=== PATIENT | female | born 1935 | race Caucasian/White ===

== ENCOUNTER 2017-11-18 14:08 | Observation (INO) | payer MEDICARE ==
[~2017-11-18] VITALS: Ht 144.8 cm; Wt 67.6 kg
[2017-11-18] MEDS ORDERED: ASPIRIN 81 MG CHEW TAB PO ONE ×2 (14:15→16:30)
--- NOTE | 2017-11-18 14:41 | Diagnostic Imaging Report ---
PROCEDURE: A single AP view of the chest. COMPARISON: None. INDICATIONS: SHORTNESS OF BREATH FINDINGS: Lines/tubes: None. Lungs: The lungs are well inflated. Mild interstitial opacities may be related to scarring. No evidence of infection. Pleura: There is no pleural effusion or pneumothorax. Heart and mediastinum: The heart size is within normal limits. Aorta is tortuous. Bones: No acute bony abnormality. IMPRESSION: Mild interstitial opacities may be related to scarring. No evidence of infection. Dictated by: Mikey Thibodeaux M.D. on 11/18/2017 at 14:40 Electronically approved by: Mikey Thibodeaux M.D. on 11/18/2017 at 14:40
[2017-11-18 14:58] LABS: BASOPHILS % 0.8 % (0.0-1.0); EOSINOPHILS # (AUTO) 0.1 (0.0-0.4); EOSINOPHILS % 1.7 % (0.0-6.0); HEMATOCRIT 39.9 % (34.2-44.1); HEMOGLOBIN 12.8 g/dL (12.0-16.0); LYMPHOCYTES # (AUTO) 1.8 (1.0-3.2); LYMPHOCYTES % 34.3 % (18.0-39.1); MEAN CORPUSCULAR HEMOGLOBIN 30.5 pg (28-32); MEAN CORPUSCULAR HGB CONC 32.1 g/dL (31-35); MEAN CORPUSCULAR VOLUME 95.2 fL (81-99); MONOCYTES # (AUTO) 0.3 (0.2-0.8); PLATELET COUNT 200 x10e3/uL (140-360); RED BLOOD COUNT 4.19 x10e6/uL (3.6-5.1); RED CELL DISTRIBUTION WIDTH 13.8 % (11.7-14.4)
[2017-11-18 15:00] LABS: INR 0.96
[2017-11-18 15:01] LABS: PARTIAL THROMBOPLASTIN TIME 30.9 seconds (23.8-35.5)
[2017-11-18 15:12] LABS: ALANINE AMINOTRANSFERASE 11 IU/L (0-55); ALBUMIN/GLOBULIN RATIO 1.2 (0.8-2.0); ALKALINE PHOSPHATASE 97 IU/L (40-150); ANION GAP 11.9 mmol/L (8-16); BLOOD UREA NITROGEN 14 mg/dL (7-26); BUN/CREATININE RATIO 16 (6-25); CALCIUM 9.1 mg/dL (8.4-10.2); CARBON DIOXIDE 28 mmol/L (22-29); CHLORIDE 107 mmol/L (98-107); CREATINE KINASE 68 IU/L (29-168); CREATININE, SERUM 0.88 mg/dL (0.57-1.11); EST GLOMERULAR FILTRATION RATE > 60 ML/MIN (60-); GLUCOSE 133 mg/dL (74-118); POTASSIUM 3.9 mmol/L (3.5-5.1); SODIUM 143 mmol/L (136-145)
[2017-11-18 15:44] LABS: BILIRUBIN,URINE NEGATIVE (NEGATIVE); CLARITY,URINE CLEAR (CLEAR); COLOR,URINE YELLOW (YELLOW); KETONES,URINE NEGATIVE (NEGATIVE); LEUKOCYTE ESTERASE ,URINE 2+ (NEGATIVE); NITRITE,URINE NEGATIVE (NEGATIVE); PROTEIN,URINE DIPSTICK NEGATIVE (NEGATIVE); URINE UROBILINOGEN 0.2 mg/dL (0.2 - 1)
[2017-11-18 15:53] LABS: BACTERIA,URINE FEW /HPF; EPITHELIAL CELLS,URINE FEW /LPF; MUCUS,URINE MODERATE (RARE); RBC,URINE 0-5 /HPF (0-5)
[2017-11-18] MEDS ORDERED: SODIUM CHLORIDE FLUSH 10 ML SYR INJ PRN (16:30)
[2017-11-18] MEDS ORDERED: NITROGLYCERIN 0.4 MG SUBL SL PRN (16:30)
[2017-11-18] MEDS ORDERED: CEFTRIAXONE SOD 1 GM VIAL IV ONE (16:30)
[2017-11-18] MEDS ORDERED: NITROGLYCERIN/D5W 200 MCG/ML 250 ML IV PRN (16:30)
[2017-11-18] MEDS ORDERED: MORPHINE SULFATE 2 MG/ML SYR IV PRN (16:30)
[2017-11-18] MEDS ORDERED: HYDRALAZINE HCL 20 MG/ML VIAL IV PRN (16:30)
[2017-11-18] MEDS ORDERED: ONDANSETRON HCL INJ 2 MG/ML VIAL IV PRN (16:30)
[2017-11-18] MEDS ORDERED: HYDRALAZINE HCL 20 MG/ML VIAL IV ONE ×2 (16:30→18:45)
--- OUTSIDE RECORDS SUMMARY | 2017-11-18 17:25 | XMS REPORT ---
Author Author [facility] Address Unknown Phone Unavailable Care Team Providers Care Construction Producer Name Role Phone EMILY SOLOMON Unavailable Unavailable Problems This patient has no known problems. Allergies, Adverse Reactions, Alerts This patient has no known allergies or adverse reactions. Medications This patient has no known medications. Results Test Description Test Time Test Comments Text Results Atomic Results Result Comments CHEST SINGLE (PORTABLE) [address] [address] Patient Name: OSITO LORENZANA MR #: [id number] : 1935 Age/Sex: 82/F Req #: [id number] Adm Physician: Ordered by: BRIAN CHACON PATCH SETTER Report #: [id number] Location: ER Room/Bed: Procedure: [id number] DX/CHEST SINGLE (PORTABLE) Exam Date: 11/18/17 Exam Time: 1415 REPORT STATUS: Signed PROCEDURE: A single AP view of the chest. COMPARISON: None. INDICATIONS: SHORTNESS OF BREATH FINDINGS: Lines/tubes: None. Lungs: The lungs are well inflated. Mild interstitial opacities may be related to scarring. No evidence of infection. Pleura: There is no pleural effusion or pneumothorax. Heart and mediastinum: The heart size is within normal limits. Aorta is tortuous. Bones: No acute bony abnormality. IMPRESSION: Mild interstitial opacities may be related to scarring. No evidence of infection. Dictated by: Martha Thibodeaux M.D. on 11/18/2017 at 14:40 Electronically approved by: Martha Thibodeaux M.D. on 11/18/2017 at 14:40 Dictated By: MARTHA THIBODEAUX MD 1440 Transcribed By: CHAU on 1440 COPY TO: BRIAN CHACON NP
[2017-11-18] MEDS: FAMOTIDINE 20 MG/2 ML VIAL IV SCH (17:41)
[2017-11-18] MEDS ORDERED: PROPRANOLOL HCL40 MG PO (20:08)
[2017-11-18] MEDS ORDERED: CITALOPRAM HBR20 MG PO (20:08)
[2017-11-18] MEDS ORDERED: LEXAPRO10 MG PO (20:08)
[2017-11-18] MEDS ORDERED: LOSARTAN POTASS25 MG PO (20:08)
[2017-11-18] MEDS ORDERED: BACTRIM DS TAB1 EACH PO (20:08)
[2017-11-18] MEDS ORDERED: BUSPIRONE HCL5 MG PO (20:08)
[2017-11-18 22:00] VITALS: BP 179/86
[2017-11-18 22:18] VITALS: BP 179/86
[2017-11-19 00:08] VITALS: BP 131/75
[2017-11-19 04:07] VITALS: BP 168/74
[2017-11-19] MEDS: FAMOTIDINE 20 MG/2 ML VIAL IV SCH (05:03)
[2017-11-19 08:22] VITALS: BP 175/80
[2017-11-19] MEDS ORDERED: BUSPIRONE HCL 5 MG TAB PO SCH (09:00)
[2017-11-19] MEDS ORDERED: CITALOPRAM HYDROBROMIDE 20 MG TAB PO SCH (09:00)
--- NOTE | 2017-11-19 09:04 | Consultation ---
DATE OF CONSULTATION: November 18, 2017 CARDIOLOGY CONSULTATION REQUESTING PHYSICIAN: Dr. Elbert Payton REASON FOR CONSULTATION: Chest pain and uncontrolled high blood pressure. HPI: This is an 82-year-old female that presented with chest pain, shortness of breath and weakness. According to the medical record and bedside nurse, she started having chest pain at the center of her chest on a scale of 4 out of 10 with no radiation that started yesterday. She was brought to the emergency room for evaluation. She is alert and oriented times 2. She is a little agitated and not following commands. Troponin times 2 negative. EKG showed normal sinus rhythm with 1st-degree AV block and some prolonged QT. PAST MEDICAL HISTORY: Hypertension, headache, anxiety, and depression. PAST SURGICAL HISTORY: Appendectomy, hysterectomy. FAMILY HISTORY: Noncontributory. SOCIAL HISTORY: No smoking. No drinking. She lives at home with her son. MEDICATIONS: See chart. She is on a bunch of psych meds. ALLERGIES: SHE IS ALLERGIC TO PENICILLIN. REVIEW OF SYSTEMS: Unable to obtain. Positive for chest pain and hypertension. PHYSICAL EXAMINATION VITALS: Temperature 97, heart rate 86, blood pressure 175/80, respirations 18, oxygen saturation 95%. GENERAL: She is awake, alert and oriented times 1 and very agitated. HEENT: Mucous membranes moist. NECK: Supple. LUNGS: Bilaterally clear to auscultation. CARDIOVASCULAR: S1, S2 present. ABDOMEN: Soft. NEUROLOGIC: She is able to move all extremities. EXTREMITIES: Bilateral lower extremities with no edema. LABS: Sodium 143, potassium 3.9, chloride 107, CO2 28, BUN 14, creatinine 0.88. Glucose 133. White blood cells 5.19, hemoglobin 12.8, hematocrit 39.9, platelet 200. PT 12.0, PTT 30.9. INR is 0.96. IMPRESSION 1. Chest pain. 2. Uncontrolled high blood pressure. 3. History of headaches. 4. History of anxiety and depression. ASSESSMENT AND PLAN: She is pending an echo to assess the LV and the valve function. Will get serial cardiac enzymes. Resume her home blood pressure medication. Losartan, propranolol, and nifedipine have been added. Will check her lipid panel and continue nitrates. Further cardiac workup pending clinical course. Thank you for this consultation. Dictated by Scout Martinez NP Job#: [id number]
[2017-11-19 09:20] LABS: BASOPHILS % 0.3 % (0.0-1.0); EOSINOPHILS % 0.1 % (0.0-6.0); HEMATOCRIT 41.3 % (34.2-44.1); HEMOGLOBIN 13.3 g/dL (12.0-16.0); LYMPHOCYTES # (AUTO) 1.6 (1.0-3.2); LYMPHOCYTES % 18.3 % (18.0-39.1); MEAN CORPUSCULAR HEMOGLOBIN 30.5 pg (28-32); MEAN CORPUSCULAR HGB CONC 32.2 g/dL (31-35); MEAN CORPUSCULAR VOLUME 94.7 fL (81-99); MONOCYTES # (AUTO) 0.4 (0.2-0.8); NEUTROPHILS # (AUTO) 6.6 (2.1-6.9); PLATELET COUNT 229 x10e3/uL (140-360); RED BLOOD COUNT 4.36 x10e6/uL (3.6-5.1); RED CELL DISTRIBUTION WIDTH 14.1 % (11.7-14.4)
[2017-11-19] MEDS: ASPIRIN 81 MG ENTERIC COATED PO SCH (09:22)
[2017-11-19] MEDS: FAMOTIDINE 20 MG TAB PO SCH ×2 (09:22→16:30)
[2017-11-19] MEDS: PROPRANOLOL HCL 40 MG TAB PO SCH ×2 (09:23→17:00)
[2017-11-19] MEDS: LOSARTAN POTASSIUM 25 MG TAB PO SCH (09:23)
[2017-11-19] MEDS: NIFEDIPINE CR 30 MG TAB PO SCH ×2 (09:26→20:27)
[2017-11-19] MEDS: ESCITALOPRAM OXALATE 10 MG TAB PO SCH (09:26)
[2017-11-19 09:34] LABS: ANION GAP 13.9 mmol/L (8-16); CHOL/HDL RATIO 3.5 (3.0-3.6); CREATININE, SERUM 1.02 mg/dL (0.57-1.11); POTASSIUM 3.9 mmol/L (3.5-5.1)
[2017-11-19 09:53] LABS: CREATINE KINASE MB 2.5 ng/mL (0-5.0); THYROID STIMULATING HORMONE 0.864 uIU/mL (0.350-4.940)
--- NOTE | 2017-11-19 11:17 | History and Physical ---
PRIMARY CARE PHYSICIAN: Dr. Win Sawyer CHIEF COMPLAINT: Chest pain. HISTORY OF PRESENT ILLNESS: This is an 82-year-old woman with a history of anxiety disorder and hypertension, now developing left-sided chest pain described as sharp with mild shortness of breath and dizziness. She has not had a stress test in the past. All of this history has been obtained from the patient's son by telephone. The patient is unable to provide much history. PAST MEDICAL HISTORY: Hypertension, depression, anxiety, possible early dementia, obsessive-compulsive disorder, hearing deficits. PAST SURGICAL HISTORY: Appendectomy, hysterectomy, varicose vein surgical management. ALLERGIES: PER ELECTRONIC MEDICAL RECORD. FAMILY HISTORY/SOCIAL HISTORY: Patient is . She lives with her son. No alcohol, illicits or cigarettes. MEDICATIONS: Per electronic medical record. REVIEW OF SYSTEMS: Unreliable. PHYSICAL EXAMINATION VITAL SIGNS: Have been reviewed. In the emergency room, blood pressure as high as 233/107. GENERAL: A tired-appearing woman resting in bed. HEENT: Anicteric. CARDIOVASCULAR: Normal S1 and S2. LUNGS: Moderate breath sounds. ABDOMEN: Soft, nontender and nondistended. EXTREMITIES: No edema or calf tenderness. NEUROLOGICAL: Alert. She is oriented times 2. She moves all extremities. SKIN: Dry. PSYCHIATRIC: Flat affect. LABS: Reviewed. MEDICATIONS: Reviewed. ASSESSMENT AND PLAN: This is an 82-year-old woman with: 1. Hypertensive emergency: Will treat with medication regimen and reduce blood pressure. 2. Left-sided chest pain: Could be related to the elevated blood pressure. Will consult cardiology. 3. Urinary tract infection: Treat with antibiotics. Follow up cultures. 4. Obesity: Body mass index 32.3. Will obtain lipid panel and screen for diabetes. 5. Anxiety/depression: Continue Lexapro, citalopram and buspirone. 6. Prophylaxis: Will use Lovenox and Pepcid. 7. Disposition: Follow up cardiology recommendations. Follow up urine cultures. Job#: [id number] [place]
[2017-11-19] MEDS ORDERED: HALOPERIDOL LACTATE 5 MG/ML VIAL IM PRN (15:30)
[2017-11-19] MEDS ORDERED: RISPERIDONE 0.5 MG TAB PO PRN (15:30)
[2017-11-19] MEDS ORDERED: LORAZEPAM 0.5 MG TAB PO PRN (15:30)
[2017-11-19] MEDS ORDERED: LORAZEPAM INJ 2 MG/ML VIAL IM PRN (15:30)
[2017-11-19 16:13] VITALS: BP 142/68
[2017-11-19] MEDS: ENOXAPARIN SOD INJ 40 MG/0.4 ML SYR SC SCH (17:00)
[2017-11-19] MEDS: BUSPIRONE HCL 5 MG TAB PO SCH (17:00)
--- NOTE | 2017-11-19 17:06 | Consultation ---
DATE OF CONSULTATION: November 19, 2017 PSYCHIATRIC CONSULTATION REASON FOR CONSULTATION: To evaluate patient's agitation. HISTORY OF PRESENTING ILLNESS: The patient is an 82-year-old female admitted to the hospital for chest pain. Psychiatric consultation is called to evaluate patient's agitation. As per the medical record, patient complained of chest pain and she has history of anxiety/depression and hypertension, obsessive-compulsive disorder and hearing deficit. She has never had any stress test in the past, and medical history was obtained by Medical through patient's son as patient was too confused to provide much information. Upon evaluation today, patient is found to be sitting in the wheelchair in the nursing station, reading magazine. She appears to be calm and pleasant. She is alert, awake and oriented to self only. She is very confused. She does not know where she is or the current year. She is unable to answer any questions appropriately. As per nursing staff, patient has been very agitated and restless. She is trying to get out of bed. She has been yelling, screaming. She was admitted last night but did not receive any p.r.n. medication last night. Apparently her son has accepted to take her home upon discharge. She does have some medication for depression/anxiety. PAST PSYCHIATRIC HISTORY: As per the medical record, patient has history of dementia, depression/anxiety, and obsessive-compulsive disorder. She is unable to answer any other questions. As per the notes, she does not drink alcohol or use any drugs. FAMILY HISTORY: Unknown. SOCIAL HISTORY: Will be going home with son as per nursing staff. MENTAL STATUS EXAMINATION: The patient is an elderly female. She is alert, awake and oriented to self only. Mood is anxious. Affect is congruent with mood. Thought process is loose. She does not elicit paranoia or delusional thinking. She denies any suicidal or homicidal ideation. She denies any hallucination. Insight and judgment are limited. Memory is grossly impaired. CURRENT MEDICATION 1. Nifedipine. 2. Lexapro 10 mg p.o. daily. 3. Propranolol. 4. Losartan. 5. Famotidine. 6. Celexa 10 mg p.o. daily. 7. BuSpar 10 mg p.o. daily. 8. Aspirin. 9. Morphine. 10. Hydralazine. 11. Enoxaparin. 12. Sodium chloride. 13. Zofran. 14. Nitroglycerin. CURRENT LAB: WBC 8.68, RBC 4.36, hemoglobin 13.3, hematocrit 41.3, platelets 229. Sodium 140, potassium 3.9, chloride 106, CO2 24, BUN 18, creatinine 1.82. ASSESSMENT: Major depressive disorder, recurrent, mild to moderate; anxiety disorder; history of obsessive-compulsive disorder; unspecified dementia with behavior disturbances. PLAN 1. Discontinue Celexa. 2. Continue Lexapro 10 mg p.o. daily. 3. Adjust BuSpar to 5 mg p.o. b.i.d. 4. Add Haldol 1 mg IM q.6 h. p.r.n. 5. Add Risperdal 0.5 mg p.o. q.6 h. p.r.n. 6. Add Ativan 0.5 mg p.o. q.6 h. p.r.n. 7. Add Ativan 0.5 mg IM q.6 h. p.r.n. 8. Monitor for agitation. Thank you for this consultation. Dictated by: PRANAV Jensen Job#: [id number] [place]
[2017-11-19 20:15] VITALS: BP 166/89
[2017-11-20] MEDS ORDERED: FAMOTIDINE20 MG PO (05:41)
[2017-11-20] MEDS ORDERED: ASPIRIN EC81 MG PO (05:41)
[2017-11-20] MEDS ORDERED: RISPERDAL0.5 MG PO (05:41)
[2017-11-20] MEDS ORDERED: LEVAQUIN500 MG PO (05:41)
[2017-11-20] MEDS ORDERED: NIFEDIPINE ER30 M1 PO (05:41)
[2017-11-20 06:00] VITALS: BP 135/64
[2017-11-20] MEDS: FAMOTIDINE 20 MG TAB PO SCH ×3 (07:30→17:51)
--- NOTE | 2017-11-20 08:45 | Progress Note ---
DATE: NO DICTATION, LENGTH 1 SECOND. Job#: [id number] [place]
--- NOTE | 2017-11-20 08:49 | Discharge Summary ---
PRINCIPAL DIAGNOSES 1. Hypertensive emergency. 2. Left-sided chest pain, which is noncardiac. 3. Urinary tract infection. 4. Obesity. Body mass index 32.3 with hemoglobin A1c 5.2, LDL 142. 5. Anxiety and depression. SECONDARY DIAGNOSIS: Anxiety. CHIEF COMPLAINT: Chest pain. HISTORY OF PRESENT ILLNESS: An 82-year-old woman developing chest pain. Refer to the H and P for further details. HOSPITAL COURSE: The patient had chest pain. Cardiac enzymes were negative. She had hypertensive emergency and treated with medication regimen. She had anxiety, depression and some psychosis. She does have dementia. Psychiatry was consulted who assisted in management. Medications have been adjusted. The patient is currently appropriate for discharge with medication regimen. DISCHARGE MEDICATIONS: Per electronic medical record. FOLLOWUP 1. Primary care doctor in 1 week. 2. Psychiatry in 3 days. CONDITION ON DISCHARGE: Stable and improving. DISCHARGE LOCATION: Home with physical therapy and home health services. TERESO PAUL MD Job#: [id number] [place]
[2017-11-20] MEDS: ESCITALOPRAM OXALATE 10 MG TAB PO SCH (09:00)
[2017-11-20] MEDS: PROPRANOLOL HCL 40 MG TAB PO SCH ×3 (09:00→17:52)
[2017-11-20] MEDS: BUSPIRONE HCL 5 MG TAB PO SCH ×3 (09:00→17:51)
[2017-11-20] MEDS: LOSARTAN POTASSIUM 25 MG TAB PO SCH (09:00)
[2017-11-20] MEDS: ASPIRIN 81 MG ENTERIC COATED PO SCH (09:00)
[2017-11-20] MEDS: NIFEDIPINE CR 30 MG TAB PO SCH (09:00)
[2017-11-20 09:22] VITALS: BP 100/51
[2017-11-20] MEDS ORDERED: RISPERIDONE 0.5 MG TAB PO PRN (16:45)
[2017-11-20] MEDS ORDERED: HALOPERIDOL LACTATE 5 MG/ML VIAL IM PRN (16:45)
[2017-11-20] MEDS: ENOXAPARIN SOD INJ 40 MG/0.4 ML SYR SC SCH (17:44)
--- NOTE | 2017-11-20 17:56 | Progress Note ---
DATE: November 20, 2017 PSYCHIATRIC PROGRESS NOTE Patient evaluated and events noted. Patient received a Haldol dose last night. She has been very drowsy and has not been eating breakfast today or lunch. However, upon entering the room, patient is easily arousable. She opens her eyes but is not answering questions. She is calm at this time, has a sitter in the room. She has a discharge order to go home and to follow up with Psychiatry. Patient will be picked up by her son. Discussed with patient's nurse and informed them that she will most likely need a psychiatrist to follow up and also for any p.r.n. medication to adjust the medication lower to prevent sedation. ASSESSMENT: Major depressive disorder, mild to moderate; diet is ordered; history of obsessive-compulsive disorder; unspecified dementia. PLAN 1. To reduce Haldol p.r.n. IM to 0.5 mg IM q.6 h. p.r.n. 2. Reduce Risperdal to 0.25 mg p.o. q.6 h. p.r.n. 3. Continue with Lexapro 10 mg p.o. daily. 4. Continue with BuSpar 5 mg p.o. b.i.d. 5. Continue Ativan 0.5 mg p.o. q.6 h. p.r.n. 6. Continue with Ativan 0.5 mg IM q.6 h. p.r.n. 7. No other for sedation or agitation. Dictated by: PRANAV Jensen Job#: [id number] [place]
== END 2017-11-20 18:51 | disposition home or self-care (01) ==
LOC: ER 14:08 → ERHOLD 17:22 → IMCU 21:24
PROVIDERS: ADMIT Internal Medicine; ATTEND Internal Medicine
DX: R07.89 Other chest pain (principal); N39.0 Urinary tract infection, site not specified; I16.1 Hypertensive emergency; I10 Essential (primary) hypertension; F42.9 Obsessive-compulsive disorder, unspecified; E66.9 Obesity, unspecified; Z68.32 Body mass index [BMI] 32.0-32.9, adult; F41.8 Other specified anxiety disorders; F33.1 Major depressive disorder, recurrent, moderate; F03.91 Unspecified dementia, unspecified severity, with behavioral disturbance; Z88.0 Allergy status to penicillin
CPT/HCPCS: 36415 ×2; 71045; 80048; 80053; 80061; 81001; 82550 ×2; 82553 ×2; 83036; 83735; 83880; 84443; 84484 ×2; 85025 ×2; 85610; 85730; 87086; 93005; 93306; 93925; 99284; G0378 ×3; J0360; J0696; J1630; J1650 ×2; J2270; J2405

== ENCOUNTER 2018-04-22 13:45 | Emergency (ER) | payer MEDICARE ==
[~2018-04-22] VITALS: Ht 144.8 cm; Wt 67.6 kg
[~2018-04-22 13:45] MED LIST: ASPIRIN EC81 MG PO; BACTRIM DS TAB1 EACH PO; BUSPIRONE HCL5 MG PO; CITALOPRAM HBR20 MG PO; FAMOTIDINE20 MG PO; LEVAQUIN500 MG PO; LEXAPRO10 MG PO; LOSARTAN POTASS25 MG PO; NIFEDIPINE ER30 M1 PO; PROPRANOLOL HCL40 MG PO; RISPERDAL0.5 MG PO
--- NOTE | 2018-04-22 16:57 | Diagnostic Imaging Report ---
PROCEDURE:HIP LEFT 2-3 VW (+/- PELVIS) COMPARISON:None. INDICATIONS:FELL FINDINGS: BONES:Generalized osteopenia, which limits evaluation of the bony structures. No acute displaced fracture or dislocation. No lytic or blastic lesion. SOFT TISSUES:Multiple metallic clips project over the medial aspect of both proximal thighs. OTHER:Pelvic phleboliths. Degenerative changes in the lower lumbosacral spine, bilateral sacroiliac joints and to a lesser degree bilateral hip joints. CONCLUSION: Generalized osteopenia, which limits evaluation of structures. No acute, displaced fracture or dislocation, within the limitations of the study. Noe Nguyen M.D. Dictated by: Noe Nguyen M.D. on 04/22/2018 at 17:02 Electronically approved by: Noe Nguyen M.D. on 04/22/2018 at 17:02
--- NOTE | 2018-04-22 16:58 | Diagnostic Imaging Report ---
PROCEDURE:FEMUR 2 VIEWS MINIMUM LEFT COMPARISON:None. INDICATIONS:FALL FINDINGS: Decreased mineralization, which limits evaluation of bony structures. No acute, displaced fracture or dislocation. No lytic or blastic lesions. Vascular calcifications. Multiple metallic clips project in the posterior aspect of the left leg soft tissues.. CONCLUSION: Decreased mineralization, which limits evaluation of the bony structures. No acute displaced fracture or dislocation, within the limitations of the study. Noe Nguyen M.D. Dictated by: Noe Nguyen M.D. on 04/22/2018 at 17:04 Electronically approved by: Noe Nguyen M.D. on 04/22/2018 at 17:04
[2018-04-22 18:17] VITALS: BP 125/61
== END 2018-04-22 18:23 | disposition home or self-care (01) ==
LOC: ER 13:45
DX: S70.02XA Contusion of left hip, initial encounter (principal); S70.12XA Contusion of left thigh, initial encounter; W18.39XA Other fall on same level, initial encounter; Y93.01 Activity, walking, marching and hiking; Y92.008 Other place in unspecified non-institutional (private) residence as the place of occurrence of the external cause
CPT/HCPCS: 99284

== ENCOUNTER 2018-04-24 21:58 | Inpatient (IN) | payer MEDICARE ==
[~2018-04-24] VITALS: Ht 170.2 cm; Wt 70.8 kg
--- NOTE | 2018-04-24 23:02 | Diagnostic Imaging Report ---
History: Status post fall. Comparison studies: None Technique: Axial images were obtained through the cervical region.. Coronal and sagittal images reconstructed from the axial data.. Intravenous contrast: None Findings: Fractures: None. Soft tissue injuries: None. Atlantoaxial articulation: Intact. Alignment: Normal lordosis. Dextrocurvature of the cervical spine is likely positional. 2 mm grade 1 retrolisthesis at C5-C6 is likely degenerative. Cervicomedullary junction: No abnormalities. The foramen magnum is patent. Soft tissues: No abnormalities. Vertebrae: Diffuse osseous demineralization. No fractures, infection or neoplasm. Degenerative changes: C2-C3: Moderate degenerative disc disease. Posterior disc osteophyte complex without canal stenosis. Mild right foraminal stenosis due to facet and uncovertebral arthrosis. C3-C4: Severe degenerative disc disease with complete loss of intervertebral disc space. Mild right foraminal stenosis due to facet and uncovertebral arthrosis. C4-C5: Mild degenerative disc disease. Posterior disc osteophyte complex results in mild canal stenosis. Moderate left foraminal stenosis due to facet and uncovertebral arthrosis. C5-C6: Moderate degenerative disc disease with decreased intervertebral disc space and vacuum phenomenon. Grade 1 retrolisthesis. Mild right and moderate left foraminal stenosis due to facet and uncovertebral arthrosis. C6-C7: Mild degenerative disc disease. Mild left foraminal stenosis due to facet and uncovertebral arthrosis.. IMPRESSION: 1. No acute cervical spine fracture. Dextrocurvature of the cervical spine is likely positional. 2. Ligament, spinal cord and or vascular abnormalities cannot be excluded on the basis of this examination. 3. Cervical spondylosis as detailed above. Signed by: Dr. Marlen Benito M.D. on 04/24/2018 10:59 PM
--- NOTE | 2018-04-24 23:08 | Diagnostic Imaging Report ---
EXAMINATION: Head CT without contrast. HISTORY:Fall. COMPARISON:None. TECHNIQUE: Multidetector axial images were obtained from the foramen magnum to the vertex without contrast. The images were reconstructed using brain and bone algorithms. Thin section brain images were reformatted into coronal and sagittal planes. Intravenous contrast: None IMAGE QUALITY: Acceptable. FINDINGS: Skull/scalp: No lytic or blastic. lesions. No surgical changes. Parenchyma: Nonspecific bilateral frontoparietal patchy white matter hypodensity are likely related to small vessel ischemic changes. Old lacunar infarct in left caudate head, anterior aspect of right thalamus, right paramedian aspect of cingulate gyrus and anterior limb of left internal capsule that extends to involve left putamen. Arteries: No density suggestive of thrombosis. Atherosclerotic calcification in bilateral carotid siphon. Dural sinuses: No abnormal density suggestive of thrombosis. Ventricles: Mild compensated dilatation due to volume loss. No hydrocephalus. Extra-axial spaces: No abnormal density. Brain volume: Normal for age. Craniocervical junction: No mass, Chiari malformation, or basilar invagination. Sella: No mass. Paranasal/mastoid sinuses: Imaged portions unremarkable. IMPRESSION: 1. No acute intracranial abnormality. 2. Moderate supratentorial white matter microvascular ischemic changes and multifocal chronic lacunar infarcts. 3. Generalized age-related cerebral volume loss. Signed by: Dr. Marlen Benito M.D. on 04/24/2018 11:05 PM
--- NOTE | 2018-04-24 23:25 | Diagnostic Imaging Report ---
EXAM: PELVIS AP 1-2 VIEWS INDICATION: Fall COMPARISON: Pelvic x-ray April 22, 2018 FINDINGS: BONES: No acute fractures. JOINTS: No malalignment. Degenerative changes of the lower lumbar spine, sacroiliac joints and pubic symphysis and bilateral hips. SOFT TISSUES: Surgical clips bilateral medial thighs. IMPRESSION: No evidence of a pelvic fracture. Neither femoral neck is seen in profile. If there is clinical concern for a hip fracture, consider dedicated hip views. Signed by: Dr. Haven Velazquez M.D. on 04/24/2018 11:21 PM
--- NOTE | 2018-04-24 23:30 | Diagnostic Imaging Report ---
EXAM: CHEST SINGLE (PORTABLE), AP 1 view INDICATION: Fall COMPARISON: November 18, 2017 FINDINGS: LINES/TUBES: None LUNGS: No consolidations or edema. Subsegmental linear atelectasis right lung base. PLEURA: No effusions or pneumothorax. HEART AND MEDIASTINUM: Stable appearance. BONES AND SOFT TISSUES: Indeterminate density projected over the left lower lobe. IMPRESSION: Indeterminate density projected over the left lower lobe. This could represent a hernia or overlying artifact. Please correlate for external artifact and obtaining upright PA and lateral view of the chest as clinically indicated. Signed by: Dr. Haven Velazquez M.D. on 04/24/2018 11:27 PM
[2018-04-25 00:14] LABS: BASOPHILS # (AUTO) 0.1 (0.0-0.1); BASOPHILS % 0.9 % (0.0-1.0); EOSINOPHILS # (AUTO) 0.2 (0.0-0.4); EOSINOPHILS % 3.2 % (0.0-6.0); HEMATOCRIT 40.6 % (34.2-44.1); HEMOGLOBIN 13.2 g/dL (12.0-16.0); LYMPHOCYTES # (AUTO) 2.3 (1.0-3.2); LYMPHOCYTES % 33.8 % (18.0-39.1); MEAN CORPUSCULAR HEMOGLOBIN 30.4 pg (28-32); MEAN CORPUSCULAR HGB CONC 32.5 g/dL (31-35); MEAN CORPUSCULAR VOLUME 93.5 fL (81-99); MONOCYTES # (AUTO) 0.4 (0.2-0.8); MONOCYTES % 6.6 % (4.4-11.3); NEUTROPHILS # (AUTO) 3.7 (2.1-6.9); NEUTROPHILS % 55.2 % (38.7-80.0); PLATELET COUNT 242 x10e3/uL (140-360); RED BLOOD COUNT 4.34 x10e6/uL (3.6-5.1); RED CELL DISTRIBUTION WIDTH 14.2 % (11.7-14.4)
[2018-04-25 00:32] LABS: ALBUMIN 4.3 g/dL (3.5-5.0); ALBUMIN/GLOBULIN RATIO 1.2 (0.8-2.0); ANION GAP 17.9 mmol/L (8-16); CALCIUM 9.6 mg/dL (8.4-10.2); CREATININE, SERUM 1.22 mg/dL (0.57-1.11); POTASSIUM 3.9 mmol/L (3.5-5.1)
[2018-04-25 04:38] LABS: CLARITY,URINE SL CLOUDY (CLEAR); COLOR,URINE YELLOW (YELLOW)
[2018-04-25 04:39] LABS: BILIRUBIN,URINE NEGATIVE (NEGATIVE); KETONES,URINE NEGATIVE (NEGATIVE); LEUKOCYTE ESTERASE ,URINE 1+ (NEGATIVE); NITRITE,URINE NEGATIVE (NEGATIVE); PROTEIN,URINE DIPSTICK NEGATIVE (NEGATIVE); URINE UROBILINOGEN 0.2 mg/dL (0.2 - 1)
[2018-04-25 04:40] LABS: BACTERIA,URINE MANY /HPF; EPITHELIAL CELLS,URINE MANY /LPF
[2018-04-25] MEDS ORDERED: ONDANSETRON HCL INJ 2 MG/ML VIAL IV PRN (05:00)
[2018-04-25] MEDS: CEFTRIAXONE SOD 1 GM VIAL IV SCH (05:30)
[2018-04-25] MEDS ORDERED: ACETAMINOPHEN 325 MG TAB PO PRN (12:00)
[2018-04-25] MEDS ORDERED: CIPRO500 MG PO (12:21)
[2018-04-25] MEDS ORDERED: DIAZEPAM5 MG PO (12:21)
[2018-04-25] MEDS ORDERED: POTASSIUM CHLO20 ME1 (12:21)
[2018-04-25] MEDS ORDERED: APPLE CIDER VI600 MG (12:21)
[2018-04-25] MEDS ORDERED: FUROSEMIDE40 MG PO (12:21)
[2018-04-25] MEDS ORDERED: ULTRAM 50MG50 MG PO (12:21)
[2018-04-25] MEDS ORDERED: GLUCOSAMINE1000 MG PO (12:21)
[2018-04-25] MEDS ORDERED: LYSINE1000 MG PO (12:21)
[2018-04-25] MEDS ORDERED: BEE POLLEN580 MG (12:21)
--- NOTE | 2018-04-25 13:54 | History and Physical ---
CHIEF COMPLAINT: Frequent falls. HISTORY OF PRESENT ILLNESS: This is an 82-year-old female with underlying dementia who also has a recent diagnosis of UTI by her primary care physician, currently on oral antibiotics, who currently lives with her son and was brought in by the EMS due to having frequent falls yesterday. According to the report, the patient uses a walker at home and has been having frequent falls. Was recently diagnosed with a UTI this week by her PCP and was given some more antibiotics with much improvement. Patient denies any fever, cough, congestion, dysuria, hematuria, or any other complaints at this time. All lab findings and imaging studies were found to be negative. Patient does not recall how she fell down but there were no reports of her losing any consciousness. There were no reports of any stroke-like symptoms or any seizure like activities. There are no reports of any palpitations or any chest pain. According to the patient and the caregiver at bedside and the son in which they discussed this with him over the phone by the ER physician, that the patient has been having frequent falls at home and it is nothing new. Family is suggesting group home facility due to frequent falls. Patient is seen and evaluated at bedside on the medical floor currently, doing well with no other complaints. Vital signs stable when I evaluated her. REVIEW OF SYSTEMS: Pertinent positives: Frequent falls, recent diagnosis of UTI. Pertinent negatives: Denies any chest pain, palpitation, nausea, vomiting, diarrhea, dysuria, hematuria, frequency, urgency, lightheadedness, dizziness, abdominal pain, headache, shortness of breath, fever, cough, congestion, or any other complaints. The rest of the 14-point review of systems has been reviewed with the patient and is negative. ALLERGIES: PENICILLINS. HOME MEDICATIONS: She takes 1. Buspirone 10 mg daily. 2. Centrum multivitamin 1 tablet daily. 3. Diazepam 10 mg as needed every 8 hours. 4. She takes 20 mg every evening. 5. Furosemide 40 mg daily. 6. She is currently on Cipro 500 mg daily. 7. She takes glucosamine complex 1,500 mg once a day. 8. Losartan 25 mg daily. 9. Potassium chloride tablets 20 mEq daily. PAST MEDICAL HISTORY: Hypertension, chronic UTIs. Also has a history of depression, anxiety, and some dementia. SURGICAL HISTORY: None. FAMILY HISTORY: Hypertension, diabetes. SOCIAL HISTORY: No drugs, no alcohol. Does not smoke. Lives with her son. 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 VITAL SIGNS: Temperature is 98.5, pulse 79, respiratory rate is 18, blood pressure 118/71, pulse ox 100% on room air. LABORATORY DATA: White count 6.3, hemoglobin 13.2, hematocrit is 41, platelets of 242. Chemistry: Sodium 142, potassium 3.9, chloride 102, bicarb 22, anion gap is 17, BUN is 71, creatinine is 1.2, glucose 107, calcium 9.6. Total protein 0.6, AST 33, ALT 17, alkaline phos 105, total protein 7.9, albumin 2.13. Urinalysis was found to be WBCs 11-20, leukocyte esterase 1+. MICROBIOLOGY: None. IMAGING STUDIES: Pelvic x-ray was found to be negative for any pelvic fracture. Chest x-ray was negative. Cervical CT spine was found to be negative for any acute findings and CT brain was found to be negative as well. PHYSICAL EXAM GENERAL: Not in acute distress. Alert, oriented times 3, cooperative on exam. HEENT: Head normocephalic, atraumatic. Eyes: Pupils are equal and reactive to light bilaterally. Extraocular movements are intact bilaterally. No evidence of any erythema or exudates in the posterior pharynx. Has poor dentition. NECK: Supple. Good range of motion throughout. PULMONARY: Clear to auscultation bilaterally. No wheezing, no rales, no rhonchi, no crackles appreciated. CARDIOVASCULAR: Positive S1, S2. No murmurs, rubs, or gallops. ABDOMEN: Soft, nondistended, nontender to palpation. Bowel sounds present. MUSCULOSKELETAL: Strength is 5/5 throughout. No evidence of any musculoskeletal deficit on examination. No weakness appreciated. NEUROLOGIC: Cranial nerves II-XII are grossly intact. No evidence of any neurologic deficits on exam. SKIN: Intact. Warm to touch. Good cap refill. PSYCHIATRIC: Normal affect and mood. EXTREMITIES: No edema. Good range of motion throughout. IMPRESSIONS 1. Frequent falls. 2. Dementia. 3. Hypertension. 4. Prophylaxis. 5. Recent urinary tract infection. PLANS: At this time, patient has had frequent falls at home and this is not a new finding. At this time, we are going to try for group home facility placement. Case management has been consulted. The patient will be under observation. Currently, we have no other medical treatment at this time. We are going to get physical therapy to work with the patient. Imaging studies are found to be negative. We are going to resume all her antihypertensive medications at this time. We are going to continue with IV Rocephin as the patient was currently being treated for a UTI. We are going to use Lovenox for DVT prophylaxis and put her on a regular diet. Physical therapy has been consulted to evaluate and treat to assess patient's mobility. Our goal is to send patient to group home facility as she currently agrees and she will benefit most likely from group home. Otherwise, we will continue to follow with you. Job#: [id number] [place]ID
[2018-04-25 16:07] VITALS: BP 138/70
[2018-04-25 16:12] VITALS: BP 138/70
[2018-04-25 16:26] VITALS: BP 138/70
[2018-04-25] MEDS ORDERED: ENOXAPARIN SOD INJ 40 MG/0.4 ML SYR SC SCH (17:00)
[2018-04-25] MEDS: ENOXAPARIN INJ 80 MG/0.8 ML SYR SC SCH (17:39)
[2018-04-25] MEDS: DIAZEPAM 5 MG TAB PO PRN (17:39)
[2018-04-25 20:00] VITALS: BP 124/70
[2018-04-25 20:37] VITALS: BP 138/70
[2018-04-25] MEDS: TRAMADOL HCL 50 MG TAB PO PRN (20:37)
[2018-04-26] VITALS: BP 143/78
[2018-04-26 00:55] VITALS: BP 156/71
[2018-04-26] MEDS: CEFTRIAXONE SOD 1 GM VIAL IV SCH (04:55)
[2018-04-26] MEDS: ENOXAPARIN INJ 80 MG/0.8 ML SYR SC SCH ×2 (04:58→17:11)
[2018-04-26 05:30] LABS: BASOPHILS # (AUTO) 0.1 (0.0-0.1); EOSINOPHILS # (AUTO) 0.2 (0.0-0.4); EOSINOPHILS % 3.9 % (0.0-6.0); HEMATOCRIT 35.8 % (34.2-44.1); HEMOGLOBIN 11.7 g/dL (12.0-16.0); LYMPHOCYTES # (AUTO) 2.2 (1.0-3.2); LYMPHOCYTES % 44.4 % (18.0-39.1); MEAN CORPUSCULAR HEMOGLOBIN 30.9 pg (28-32); MEAN CORPUSCULAR HGB CONC 32.7 g/dL (31-35); MEAN CORPUSCULAR VOLUME 94.5 fL (81-99); MONOCYTES # (AUTO) 0.4 (0.2-0.8); MONOCYTES % 7.8 % (4.4-11.3); NEUTROPHILS # (AUTO) 2.1 (2.1-6.9); NEUTROPHILS % 42.7 % (38.7-80.0); PLATELET COUNT 195 x10e3/uL (140-360); RED BLOOD COUNT 3.79 x10e6/uL (3.6-5.1); RED CELL DISTRIBUTION WIDTH 14.2 % (11.7-14.4)
[2018-04-26] MEDS: DIAZEPAM 5 MG TAB PO PRN ×2 (05:40→13:44)
[2018-04-26 05:46] LABS: ALBUMIN 3.3 g/dL (3.5-5.0); ALBUMIN/GLOBULIN RATIO 1.2 (0.8-2.0); ANION GAP 12.1 mmol/L (8-16); CALCIUM 8.8 mg/dL (8.4-10.2); CREATININE, SERUM 1.01 mg/dL (0.57-1.11); POTASSIUM 4.1 mmol/L (3.5-5.1)
[2018-04-26 08:48] VITALS: BP 176/78
[2018-04-26] MEDS: LOSARTAN POTASSIUM 25 MG TAB PO SCH (09:23)
[2018-04-26] MEDS: ESCITALOPRAM OXALATE 10 MG TAB PO SCH (09:23)
[2018-04-26] MEDS: BUSPIRONE HCL 5 MG TAB PO SCH (09:23)
[2018-04-26 10:25] VITALS: BP 176/78
[2018-04-26] MEDS: QUETIAPINE FUMARATE 25 MG TAB PO PRN (18:00)
[2018-04-26] MEDS ORDERED: LORAZEPAM INJ 2 MG/ML VIAL IV NR (19:15)
[2018-04-26 20:00] VITALS: BP 147/70
[2018-04-26 21:00] VITALS: BP 147/70
[2018-04-26] MEDS: TAMSULOSIN HCL 0.4 MG CAP PO SCH (21:57)
[2018-04-26] MEDS: TRAMADOL HCL 50 MG TAB PO PRN (23:46)
[2018-04-27] VITALS (7 sets, daily range): BP systolic 97–164; BP diastolic 53–82
[2018-04-27] MEDS: CEFTRIAXONE SOD 1 GM VIAL IV SCH (04:45)
[2018-04-27] MEDS: ENOXAPARIN INJ 80 MG/0.8 ML SYR SC SCH ×2 (05:00→16:51)
[2018-04-27] MEDS: BUSPIRONE HCL 5 MG TAB PO SCH (08:53)
[2018-04-27] MEDS: LOSARTAN POTASSIUM 25 MG TAB PO SCH (08:54)
[2018-04-27] MEDS: ESCITALOPRAM OXALATE 10 MG TAB PO SCH (08:54)
[2018-04-27] MEDS: WARFARIN SOD 5 MG TAB PO SCH (16:57)
[2018-04-27 17:23] LABS: INR 1.1; PROTHROMBIN TIME 13.4 seconds (11.9-14.5)
[2018-04-27] MEDS: TAMSULOSIN HCL 0.4 MG CAP PO SCH (21:00)
[2018-04-28] MEDS: DIAZEPAM 5 MG TAB PO PRN ×2 (00:05→20:02)
[2018-04-28] MEDS: CEFTRIAXONE SOD 1 GM VIAL IV SCH (04:45)
[2018-04-28] MEDS: ENOXAPARIN INJ 80 MG/0.8 ML SYR SC SCH ×2 (05:00→18:13)
[2018-04-28 06:42] VITALS: BP 132/62
[2018-04-28 08:00] VITALS: BP 116/79
[2018-04-28] MEDS: ESCITALOPRAM OXALATE 10 MG TAB PO SCH (09:00)
[2018-04-28] MEDS: LOSARTAN POTASSIUM 25 MG TAB PO SCH (09:00)
[2018-04-28] MEDS: BUSPIRONE HCL 5 MG TAB PO SCH (09:00)
[2018-04-28 17:04] VITALS: BP 131/62
[2018-04-28] MEDS: WARFARIN SOD 5 MG TAB PO SCH (18:13)
[2018-04-28 20:00] VITALS: BP 139/67
[2018-04-28] MEDS: TAMSULOSIN HCL 0.4 MG CAP PO SCH (20:02)
[2018-04-28] MEDS: QUETIAPINE FUMARATE 25 MG TAB PO PRN (20:51)
[2018-04-29] VITALS: BP 120/67
[2018-04-29 04:00] VITALS: BP 113/69
[2018-04-29 05:33] LABS: INR 1.11; PROTHROMBIN TIME 13.5 seconds (11.9-14.5)
[2018-04-29] MEDS: ENOXAPARIN INJ 80 MG/0.8 ML SYR SC SCH ×2 (06:05→17:45)
[2018-04-29] MEDS: CEFTRIAXONE SOD 1 GM VIAL IV SCH (06:05)
[2018-04-29 08:00] VITALS: BP 139/96
[2018-04-29] MEDS: BUSPIRONE HCL 5 MG TAB PO SCH (09:25)
[2018-04-29] MEDS: LOSARTAN POTASSIUM 25 MG TAB PO SCH (09:25)
[2018-04-29] MEDS: ESCITALOPRAM OXALATE 10 MG TAB PO SCH (09:27)
[2018-04-29 12:00] VITALS: BP 146/78
[2018-04-29] MEDS: DIAZEPAM 5 MG TAB PO PRN (13:30)
[2018-04-29 16:00] VITALS: BP 141/78
[2018-04-29] MEDS: WARFARIN SOD 5 MG TAB PO SCH (17:46)
[2018-04-29] MEDS: TAMSULOSIN HCL 0.4 MG CAP PO SCH (20:18)
[2018-04-29] MEDS: QUETIAPINE FUMARATE 25 MG TAB PO PRN (20:18)
[2018-04-29] MEDS: TRAMADOL HCL 50 MG TAB PO PRN (20:18)
[2018-04-30] MEDS: CEFTRIAXONE SOD 1 GM VIAL IV SCH (05:24)
[2018-04-30] MEDS: ENOXAPARIN INJ 80 MG/0.8 ML SYR SC SCH ×2 (05:25→17:00)
[2018-04-30 06:18] LABS: INR 1.13; PROTHROMBIN TIME 13.6 seconds (11.9-14.5)
[2018-04-30 08:00] VITALS: BP 156/80
[2018-04-30] MEDS: QUETIAPINE FUMARATE 25 MG TAB PO PRN ×2 (08:27→20:40)
[2018-04-30] MEDS: ESCITALOPRAM OXALATE 10 MG TAB PO SCH (09:00)
[2018-04-30] MEDS: LOSARTAN POTASSIUM 25 MG TAB PO SCH (09:00)
[2018-04-30] MEDS: BUSPIRONE HCL 5 MG TAB PO SCH (09:00)
[2018-04-30] MEDS: TRAMADOL HCL 50 MG TAB PO PRN ×2 (11:36→18:58)
[2018-04-30] MEDS: DIAZEPAM 5 MG TAB PO PRN ×2 (11:36→20:40)
[2018-04-30 11:49] VITALS: BP 167/84
[2018-04-30 16:00] VITALS: BP 115/76
[2018-04-30] MEDS ORDERED: WARFARIN SOD 2 MG TAB PO NR (17:00)
[2018-04-30] MEDS: WARFARIN SOD 5 MG TAB PO SCH (17:00)
[2018-04-30 20:00] VITALS: BP 179/96
[2018-04-30] MEDS: TAMSULOSIN HCL 0.4 MG CAP PO SCH (20:40)
[2018-05-01 04:00] VITALS: BP 173/82
[2018-05-01 04:51] LABS: INR 1.22; PROTHROMBIN TIME 14.5 seconds (11.9-14.5)
[2018-05-01] MEDS: ENOXAPARIN INJ 80 MG/0.8 ML SYR SC SCH (05:32)
[2018-05-01] MEDS: CEFTRIAXONE SOD 1 GM VIAL IV SCH (05:32)
[2018-05-01] MEDS: QUETIAPINE FUMARATE 25 MG TAB PO PRN (07:15)
[2018-05-01] MEDS: DIAZEPAM 5 MG TAB PO PRN (07:15)
[2018-05-01] MEDS: TRAMADOL HCL 50 MG TAB PO PRN (07:30)
[2018-05-01 07:59] VITALS: BP 169/86
[2018-05-01 08:00] VITALS: BP 169/86
[2018-05-01] MEDS: LOSARTAN POTASSIUM 25 MG TAB PO SCH (09:00)
[2018-05-01] MEDS: BUSPIRONE HCL 5 MG TAB PO SCH (09:00)
[2018-05-01] MEDS: ESCITALOPRAM OXALATE 10 MG TAB PO SCH (09:00)
--- NOTE | 2018-05-01 14:11 | Discharge Summary ---
FINAL DISCHARGE DIAGNOSES 1. Frequent falls due to medically debilitated and generalized weakness. 2. Dementia. 3. Hypertension. 4. Right lower extremity deep venous thrombosis. 5. Recent urinary tract infection status post treatment. CONSULTANTS: Hematology. VITAL SIGNS: Temperature is 97.1, pulse 80, respiratory rate is 19, blood pressure 156/97, pulse ox 97% on room air. LAB FINDINGS: Show white count is 4.8, hemoglobin is 11.7, hematocrit is 35.8, platelets of 195. Coagulation: PT 14.5, INR 1.22. Chemistry: Sodium 144, potassium 4.1, chloride 113, bicarb 23, anion gap of 12, BUN is 27, creatinine is 1, glucose is 87, calcium 8.8. Total bilirubin is 0.6, AST 21, ALT 11, alk phos 79, total protein 6.1, albumin is 3.3. Urinalysis: WBCs 11 to 20, RBCs 6 to 10, 1+ leukocyte esterase, negative nitrite. MICROBIOLOGY: Urine cultures were found to be negative. IMAGING STUDIES: Pelvic x-ray shows no evidence of pelvic fracture. Chest x-ray: There is an indeterminate density projected over the left lower lobe. This could represent a hernia or artificial artifact. Patient needs repeat chest x-ray in the future, within 1 month and I explained this to the family and they verbalized understanding. Cervical CT shows no acute cervical spine fracture. CT brain: No acute intracranial abnormality. Venous lower extremity Doppler: There is an acute totally occlusive deep venous thrombosis in the right popliteal vein. HOSPITAL COURSE: This is an 82-year-old female who came into the ED after having multiple falls at home and worsening medical debilitation. Patient was admitted for further evaluation. Patient has been having difficulty walking well and has progressively declined. Patient has underlying dementia and has progressively been worse in terms of her mental status. Family wanted the patient to go to a prison facility which she has been improve for. While here the patient had right lower extremity swelling on admission in which venous Doppler was performed and found to have acute DVT. Patient was started on full-dose Lovenox 70 mg subcutaneous q.12, started on warfarin 5 mg daily. Hematology was consulted. We discussed this case with reactor kettle operator thoroughly as well as with the family at bedside and due to the fact that the patient has an acute DVT and the risk for getting a pulmonary embolism is high, though the patient has frequent falls, the risk in this case, the benefit is far higher than the risk and that anticoagulation is highly recommended based on the reactor kettle operator's recommendations. The reactor kettle operator felt that warfarin is a better agent due to reversal agents compared to new novel medications. I discussed this with the family and they verbalized that this is probably the best option for her as well in which the patient will continue with full dose Lovenox and warfarin on the prison facility. On discharge her INR was 1.22 but I already wrote scripts to the prison facility for warfarin 5 mg daily as well as full dose Lovenox 70 mg subcutaneous q.12 hours and needs to follow up with an INR in 3 days and adjust the warfarin accordingly to maintain INR between 2 and 3. At this time patient has been cleared by hematology for discharge home. She worked with physical therapy and recommended prison facility placement. On the day of discharge vital signs stable, labs remained stable. Patient seen, evaluated and examined thoroughly on the day of discharge with no complaints. Patient verbalized understanding and agreed with plan of care to follow up accordingly as an outpatient with reactor kettle operator in his office in 1 week for DVT followup as well as her primary care physician in 1 week. MEDICATIONS: See med reconciliation form including 1. Warfarin 5 mg daily. 2. Lovenox 70 mg subcu q.12 hours times 7 days, to maintain an INR between 2 and 3 and then discontinue once the INR is therapeutic. 3. Seroquel 25 mg p.o. b.i.d. p.r.n. for agitation. DISPOSITION: To prison facility. CONDITION: Stable. DIET: Heart healthy. FOLLOWUP: With hematology in 1 week, PCP in 1 week. In the event of any worsening symptoms patient was advised to come back to the ED for further evaluation. Discharge summary took greater than 35 minutes. NICHOLAS CISNEROS MD Job#: [id number] DG
--- NOTE | 2018-05-01 19:38 | Progress Note ---
DATE: May 01, 2018 CHIEF COMPLAINT: Patient is an 82-year-old female who was admitted due to multiple falls. She had baseline dementia. She underwent Doppler and found to have acute DVT. She was started on Lovenox along with warfarin. OBJECTIVE VITAL SIGNS: Reviewed as per electronic medical record. HEAD: Atraumatic, normocephalic. NECK: Supple. CVS: S1 and S2 audible. RESPIRATORY: Decreased bilateral air entry. ABDOMEN: Positive bowel sounds. EXTREMITIES: There is +1 edema. NEURO: Patient is alert but demented. LABORATORY DATA: Reviewed. ASSESSMENT AND PLAN: Ms. Houston is an 82-year-old female with multiple medical problems including known history of dementia, now presenting with acute lower extremity deep venous thrombosis. She was started on Lovenox. Due to the fall risk, she was recommended to be on Coumadin. Target INR is 2 to 3. Patient also has slight anemia. Needs to be closely monitored. Job#: [id number]
== END 2018-05-01 12:50 | DRG 300 ==
LOC: ER 21:58 → ERHOLD 04-25 05:03 → MED/SURG2 04-25 14:56
PROVIDERS: ADMIT Internal Medicine; ATTEND Internal Medicine
DX: I82.4Z1 Acute embolism and thrombosis of unspecified deep veins of right distal lower extremity (principal); N39.0 Urinary tract infection, site not specified; W19.XXXA Unspecified fall, initial encounter; Z91.81 History of falling; F03.90 Unspecified dementia, unspecified severity, without behavioral disturbance, psychotic disturbance, mood disturbance, and anxiety; I10 Essential (primary) hypertension; Z87.440 Personal history of urinary (tract) infections; Z79.899 Other long term (current) drug therapy
CPT/HCPCS: 36415; 70450; 71045; 72125; 72170; 80053; 81001; 82948; 85025; 85610; 87086; 93970; 97139; 99284; J0696; J1650; J2060